=== PATIENT | female | born 1985 | race Caucasian/White ===

== ENCOUNTER 2016-09-20 09:36 | Emergency (ER) | payer SELFPAY | END 2016-09-20 10:37 | disposition home or self-care (01) | LOC: NAV ERS 09:36 | DX: J06.9 Acute upper respiratory infection, unspecified (principal); E11.9 Type 2 diabetes mellitus without complications; J45.909 Unspecified asthma, uncomplicated | CPT/HCPCS: 87430; 94640; J7620 ==

== ENCOUNTER 2017-01-14 19:21 | Emergency (ER) | payer SELFPAY | END 2017-01-14 19:45 | disposition home or self-care (01) | LOC: NAV ERS 19:21 | DX: H60.91 Unspecified otitis externa, right ear (principal); J45.909 Unspecified asthma, uncomplicated; E11.9 Type 2 diabetes mellitus without complications; E05.90 Thyrotoxicosis, unspecified without thyrotoxic crisis or storm; Z79.899 Other long term (current) drug therapy | CPT/HCPCS: 99282 ==